=== PATIENT | female | born 1980 ===

== ENCOUNTER 2024-03-27 14:43 | Outpatient (CLI) | payer OTHER, SELFPAY | END 2024-03-27 14:44 | disposition home or self-care (01) | PROVIDERS: PCP Physician Assistant Medical; Visit Provider Physician Assistant Medical | DX: I10 Essential (primary) hypertension (principal) | CPT/HCPCS: 82043; 82088; 82570; 84244; 84443; 87086; 87186 ==

== ENCOUNTER 2024-04-10 10:31 | Outpatient (CLI) | payer OTHER, SELFPAY ==
--- NOTE | 2024-04-10 10:45 | CRLHL7_ITS ---
For Patients: As a result of the Century Cures Act, medical imaging exams and procedure reports are released immediately into your electronic medical record. You may view this report before your referring provider. If you have questions, please contact your health care provider. INDICATION: Proteinuria. Hypertension. COMPARISON: None available. TECHNIQUE: Ultrasound examination of the retroperitoneum was performed with attention to the kidneys. Color and pulse Doppler examination is used. FINDINGS: The kidneys are normal in their size, shape, and location. Cortical echogenicity and thickness is normal. There is no sign of hydronephrosis. The right kidney measures 11.2 x 4.2 x 5.6 cm. The left kidney measures 10.9 x 5.2 x 4.7 cm. There is normal color Doppler flow in both kidneys. The renal artery/aortic ratios are normal bilaterally, 1.7 on the right and 1.1 on the left. Resistive indices are normal bilaterally. Resistive indices on the right: 0.53 superior, 0.55 mid, 0.57 inferior. Resistive indices on the left: 0.57 superior, 0.50 mid, 0.58 inferior. Acceleration times are normal, 0.04 seconds bilaterally. The urinary bladder is not examined on this study. IMPRESSION: 1. Normal ultrasound examination of the kidneys. 2. No sign of renal artery stenosis. Dictated by Chris Alvarez MD @ 04/10/2024 11:34:13 PM (Electronically Signed)
== END 2024-04-10 10:32 | disposition home or self-care (01) ==
LOC: US 10:32
PROVIDERS: PCP Physician Assistant Medical; Visit Provider Physician Assistant Medical
DX: R80.9 Proteinuria, unspecified (principal); I10 Essential (primary) hypertension
CPT/HCPCS: 76775; 93975

== ENCOUNTER 2024-04-30 13:37 | Outpatient (CLI) | payer OTHER, SELFPAY ==
--- NOTE | 2024-04-30 14:00 | CRLHL7_ITS ---
For Patients: As a result of the Century Cures Act, medical imaging exams and procedure reports are released immediately into your electronic medical record. You may view this report before your referring provider. If you have questions, please contact your health care provider. Indication: LEFT SIDED ABDOMINAL PAIN Technique: CT ABDOMEN/PELVIS WITH 63 CC ISOVUE 370 AND WATER PREP Please note that all CT scans at this facility use dose modulation, iterative reconstruction, and/or weight-based dosing when appropriate to reduce radiation dose to as low as reasonably achievable. Comparison: Ultrasound renal artery study 04/10/2024 Findings: Mild dependent atelectasis noted in both lung bases. No pleural effusion. Visualized breast tissue appears unremarkable. No intrahepatic mass. Gallbladder is partially distended. No calcified gallstones or biliary obstruction. The pancreas is within normal limits. Normal spleen. No hiatal hernia. Adrenal glands normal. Normal kidneys. Bladder is normal. Normal uterus. Ovaries unremarkable. No excess pelvic free fluid. Moderate stool in the colon. No dilated bowel loops. No free air or abscess. Normal appendix. No adenopathy. Incidental bone island within the left iliac bone. No vertebral body compression fracture. No vascular anomaly. Impression: No inflammatory changes. No bowel obstruction. Some degree of constipation may be present. Normal spleen. Please note that all CT scans at this facility use dose modulation, iterative reconstruction, and/or weight-based dosing when appropriate to reduce radiation dose to as low as reasonably achievable. Dictated by Florentin Soni MD @ 05/01/2024 8:58:59 AM (Electronically Signed)
== END 2024-04-30 13:38 | disposition home or self-care (01) ==
LOC: CT 13:38
PROVIDERS: PCP Physician Assistant Medical; Visit Provider Physician Assistant Medical
DX: R10.9 Unspecified abdominal pain (principal); R19.7 Diarrhea, unspecified
CPT/HCPCS: 74177; Q9967

== ENCOUNTER 2024-10-07 10:46 | Outpatient (CLI) | payer OTHER, SELFPAY | END 2024-10-07 10:47 | disposition home or self-care (01) | LOC: LKVREF 10:47 | PROVIDERS: PCP Physician Assistant Medical; Visit Provider Physician Assistant Medical | DX: I10 Essential (primary) hypertension (principal) | CPT/HCPCS: 82043; 82570 ==